=== PATIENT | female | born 1975 | race Caucasian/White ===

== ENCOUNTER 2016-06-29 15:20 | Emergency (ER) | payer OTHER ==
[~2016-06-29] VITALS: Ht 160 cm; Wt 59.1 kg
[2016-06-29 15:24] VITALS: BP 153/104
== END 2016-06-29 19:00 | disposition left against medical advice (07) ==
LOC: EMS 15:24
DX: R07.9 Chest pain, unspecified (principal); Z53.21 Procedure and treatment not carried out due to patient leaving prior to being seen by health care provider
CPT/HCPCS: 93005

== ENCOUNTER 2016-07-01 17:39 | Emergency (ER) | payer OTHER ==
[~2016-07-01] VITALS: Ht 160 cm; Wt 61.0 kg
[2016-07-01] MEDS ORDERED: LISI-622 PO (17:50)
[2016-07-01 19:20] LABS: BASOPHILS # (AUTO) 0.03 K/uL (0.00-0.20); BASOPHILS % (AUTO) 0.7 % (0.0-2.0); EOSINOPHILS # (AUTO) 0.07 K/uL (0.00-0.70); EOSINOPHILS % (AUTO) 1.57 % (1.0-6.0); HEMATOCRIT 37.8 % (36-46); HEMOGLOBIN 12.7 g/dL (12.0-16.0); LYMPHOCYTES # (AUTO) 2.2 K/uL (1.0-4.8); LYMPHOCYTES % (AUTO) 50.5 % (22.0-44.0); MEAN CORPUSCULAR HEMOGLOBIN 30.3 pg (26.0-34.0); MEAN CORPUSCULAR HGB CONC 33.7 G/dL (31.0-37.0); MEAN CORPUSCULAR VOLUME 90 fL (80-100); MONOCYTES # (AUTO) 0.4 K/uL (0.1-1.0); MONOCYTES % (AUTO) 8.6 % (2.0-9.0); NEUTROPHILS # (AUTO) 1.7 K/uL (1.8-7.7); NEUTROPHILS % (AUTO) 38.7 % (40.0-70.0); PLATELET COUNT (AUTO) 217 K/uL (150-450); RED BLOOD CELL COUNT(AUTO) 4.21 MIL/uL (4.00-5.20); RED CELL DISTRIBUTION WIDTH 12.6 % (11.5-14.5); WHITE BLOOD COUNT (AUTO) 4.3 K/uL (4.5-11.0)
[2016-07-01 19:29] LABS: CALCIUM, TOTAL 8.4 mg/dL (8.8-10.5); CREATININE 1.07 mg/dL (0.60-1.30)
[2016-07-01 19:30] LABS: INR 0.9 (0.9-1.1)
[2016-07-01 19:34] LABS: ALBUMIN 3.2 g/dL (3.4-5.0); BILIRUBIN,TOTAL 0.1 mg/dL (0.1-1.0); TOTAL PROTEIN, SERUM 7.1 g/dL (6.4-8.2)
[2016-07-01] MEDS ORDERED: IBUPROFEN 600 MG TABLET PO ONE (21:30)
[2016-07-01] MEDS ORDERED: LORazepam 1 MG TABLET PO ONE (21:30)
[2016-07-01 21:54] VITALS: BP 125/63
== END 2016-07-01 21:56 | disposition home or self-care (01) ==
LOC: EMS 17:40
DX: F41.9 Anxiety disorder, unspecified (principal); F17.210 Nicotine dependence, cigarettes, uncomplicated; R07.89 Other chest pain; I10 Essential (primary) hypertension; F11.90 Opioid use, unspecified, uncomplicated
CPT/HCPCS: 93005; 99285; 99406

== ENCOUNTER 2016-08-30 10:24 | Emergency (ER) | payer OTHER ==
[~2016-08-30] VITALS: Ht 160 cm; Wt 61.0 kg
[~2016-08-30 10:24] MED LIST: LISI-622 PO
[2016-08-30] MEDS ORDERED: KETOROLAC TROMETHAMINE 30 MG/ML VIAL IVP ONE (12:00)
[2016-08-30] MEDS ORDERED: ONDANSETRON HCL 4 MG/2 ML VIAL IVP ONE (12:00)
[2016-08-30] MEDS ORDERED: HYDROmorphone 2 MG/ML SYRINGE IVP ONE (12:00)
[2016-08-30 12:38] LABS: BASOPHILS % (AUTO) 0.6 % (0.0-2.0); EOSINOPHILS % (AUTO) 2.6 % (1.0-6.0); HEMATOCRIT 45.2 % (36-46); LYMPHOCYTES # (AUTO) 0.7 K/uL (1.0-4.8); LYMPHOCYTES % (AUTO) 16.9 % (22.0-44.0); MEAN CORPUSCULAR HEMOGLOBIN 29.3 pg (26.0-34.0); MEAN CORPUSCULAR HGB CONC 33.1 G/dL (31.0-37.0); MEAN CORPUSCULAR VOLUME 88 fL (80-100); MONOCYTES # (AUTO) 0.3 K/uL (0.1-1.0); MONOCYTES % (AUTO) 6.3 % (2.0-9.0); NEUTROPHILS # (AUTO) 3.1 K/uL (1.8-7.7); NEUTROPHILS % (AUTO) 73.6 % (40.0-70.0); PLATELET COUNT (AUTO) 218 K/uL (150-450); RED BLOOD CELL COUNT(AUTO) 5.11 MIL/uL (4.00-5.20); RED CELL DISTRIBUTION WIDTH 13.2 % (11.5-14.5); WHITE BLOOD COUNT (AUTO) 4.2 K/uL (4.5-11.0)
[2016-08-30 12:41] LABS: APPEARANCE,URINE CLOUDY (CLEAR); GLUCOSE, URINE (UA) NEGATIVE (NEGATIVE); KETONES,URINE TRACE mg/dL (NEGATIVE); LEUKOCYTE ESTERASE ,URINE MODERATE (NEGATIVE); OCCULT BLOOD,URINE LARGE (NEGATIVE); PROTEIN,URINE TRACE (NEGATIVE)
[2016-08-30 12:46] LABS: ADD UA MICROSCOPIC YES
[2016-08-30 12:48] LABS: ANION GAP 12 mmol/L (8-16); CALCIUM, TOTAL 7.9 mg/dL (8.8-10.5); CARBON DIOXIDE 22 mmol/L (22-29); CHLORIDE 102 mmol/L (98-107); CREATININE 0.69 mg/dL (0.60-1.30); GLOMERULAR FILTR. RATE CALC > 60 mL/min (>60); POTASSIUM 3.7 mmol/L (3.5-5.1); PROTHROMBIN TIME 10.5 SEC (9.4-11.6); SODIUM SERUM 136 mmol/L (136-145); UREA NITROGEN, BLOOD 15 mg/dL (7-18)
[2016-08-30 12:48] LABS: SQUAMOUS EPITHELIAL CELL,UR Few /LPF (None Seen)
[2016-08-30 12:55] LABS: ALANINE AMINOTRANSFERASE 396 U/L (12-78); ALBUMIN 3.1 g/dL (3.4-5.0); ASPARTATE AMINOTRANSFERASE 313 U/L (15-37); BILIRUBIN,TOTAL 0.7 mg/dL (0.1-1.0); TOTAL PROTEIN, SERUM 7.3 g/dL (6.4-8.2)
[2016-08-30] MEDS ORDERED: BARIUM SULFATE 0.1% SUSPENSION 450 ML BOTTLE PO ONE (13:30)
[2016-08-30 14:10] VITALS: BP 120/85
== END 2016-08-30 16:03 | disposition left against medical advice (07) ==
LOC: EMS 10:26
DX: R10.30 Lower abdominal pain, unspecified (principal); Z87.891 Personal history of nicotine dependence; I10 Essential (primary) hypertension; Z87.442 Personal history of urinary calculi
CPT/HCPCS: 36415; 80053; 81001; 83690; 84703; 85025; 85610; 85730; 87077; 87086; 87186; 96374; 96375; 99285; J1170; J1885; J2405; Z7610

== ENCOUNTER 2016-08-30 22:21 | Inpatient (IN) | payer OTHER ==
[~2016-08-30] VITALS: Ht 160 cm; Wt 63.0 kg
[2016-08-31] MEDS ORDERED: SODIUM CHLORIDE 0.9% 1,000 ML IV ONE ×2 (00:45→03:30)
[2016-08-31] MEDS ORDERED: HYDROmorphone 2 MG/ML SYRINGE IVP ONE ×3 (00:45→03:30)
[2016-08-31] MEDS ORDERED: ONDANSETRON HCL 4 MG/2 ML VIAL IVP ONE ×2 (00:45→03:30)
[2016-08-31 01:30] LABS: BASOPHILS % (AUTO) 0.2 % (0.0-2.0); EOSINOPHILS % (AUTO) 1.8 % (1.0-6.0); HEMATOCRIT 46.4 % (36-46); HEMOGLOBIN 15.1 g/dL (12.0-16.0); LYMPHOCYTES # (AUTO) 0.8 K/uL (1.0-4.8); LYMPHOCYTES % (AUTO) 12.7 % (22.0-44.0); MEAN CORPUSCULAR HGB CONC 32.6 G/dL (31.0-37.0); MEAN CORPUSCULAR VOLUME 89 fL (80-100); MONOCYTES # (AUTO) 0.3 K/uL (0.1-1.0); MONOCYTES % (AUTO) 5.2 % (2.0-9.0); NEUTROPHILS # (AUTO) 4.9 K/uL (1.8-7.7); NEUTROPHILS % (AUTO) 80.1 % (40.0-70.0); PLATELET COUNT (AUTO) 226 K/uL (150-450); RED BLOOD CELL COUNT(AUTO) 5.22 MIL/uL (4.00-5.20); RED CELL DISTRIBUTION WIDTH 13.8 % (11.5-14.5); WHITE BLOOD COUNT (AUTO) 6.1 K/uL (4.5-11.0)
[2016-08-31 01:35] LABS: ANION GAP 8 mmol/L (8-16); CARBON DIOXIDE 25 mmol/L (22-29); CHLORIDE 102 mmol/L (98-107); CREATININE 0.88 mg/dL (0.60-1.30); GLOMERULAR FILTR. RATE CALC > 60 mL/min (>60); POTASSIUM 3.5 mmol/L (3.5-5.1); SODIUM SERUM 135 mmol/L (136-145); UREA NITROGEN, BLOOD 16 mg/dL (7-18)
[2016-08-31 01:42] LABS: ALANINE AMINOTRANSFERASE 314 U/L (12-78); ALBUMIN 3.1 g/dL (3.4-5.0); ASPARTATE AMINOTRANSFERASE 174 U/L (15-37); BILIRUBIN,TOTAL 0.4 mg/dL (0.1-1.0); TOTAL PROTEIN, SERUM 7.3 g/dL (6.4-8.2)
[2016-08-31 01:44] LABS: LACTIC ACID 0.6 mmol/L (0.4-2.0)
[2016-08-31] MEDS ORDERED: KETOROLAC TROMETHAMINE 30 MG/ML VIAL IVP ONE (02:30)
[2016-08-31] MEDS ORDERED: ACETAMINOPHEN 325 MG TABLET PO PRN ×2 (03:30→07:45)
[2016-08-31] MEDS ORDERED: CefTRIAXone 1 GM/DEXTROSE 50 ML IV ONE (03:30)
[2016-08-31] MEDS ORDERED: ONDANSETRON HCL 4 MG/2 ML VIAL IVP PRN ×2 (03:30→07:45)
[2016-08-31] MEDS ORDERED: POTASSIUM CHL 20 MEQ/D5-0.45NS 1,000 ML IV ONE (03:30)
[2016-08-31] MEDS ORDERED: 0.9% SODIUM CHLORIDE 10 ML SYRINGE IVP PRN (03:30)
[2016-08-31 04:45] VITALS: BP 106/74
[2016-08-31] MEDS ORDERED: SODIUM CHLORIDE 0.9% 1,000 ML IV SCH (07:45)
[2016-08-31] MEDS ORDERED: POTASSIUM CHL 10 MEQ/WATER 50 ML IV PRN (07:45)
[2016-08-31] MEDS ORDERED: POTASSIUM CHLORIDE 20 MEQ ER TABLET PO PRN (07:45)
[2016-08-31 08:38] VITALS: BP 101/72
[2016-08-31] MEDS: PANTOPRAZOLE SODIUM 40 MG/VIAL IVP SCH (09:15)
[2016-08-31 11:58] VITALS: BP 110/77
[2016-08-31] MEDS: METHADONE HCL 10 MG/5 ML SOLUTION ORAL.SYG PO SCH (13:35)
[2016-08-31 15:54] VITALS: BP 117/81
[2016-08-31] MEDS: LOPERAMIDE HCL 2 MG CAPSULE PO PRN ×2 (18:49→18:53)
[2016-08-31 20:02] VITALS: BP 106/71
[2016-08-31 23:43] VITALS: BP 138/90
[2016-09-01 04:00] VITALS: BP 106/75
[2016-09-01 07:05] VITALS: BP 101/50
[2016-09-01 07:38] VITALS: BP 126/91
[2016-09-01] MEDS: LOPERAMIDE HCL 2 MG CAPSULE PO PRN (08:26)
[2016-09-01] MEDS: PANTOPRAZOLE SODIUM 40 MG/VIAL IVP SCH (08:56)
[2016-09-01] MEDS: METHADONE HCL 10 MG/5 ML SOLUTION ORAL.SYG PO SCH (08:57)
[2016-09-02 04:14] LABS: HEPATITIS Bs ANTIGEN SCREEN P Negative (Negative)
[2016-09-04 12:10] LABS: HEPATITIS C AB CONFIRM REFLEX? YES; HEPATITIS C AB CONFIRMATION Reactive (Non Reactive); HEPATITIS C AB SCREEN 4.7 s/co ratio (0.0-0.9)
== END 2016-09-01 12:00 | disposition left against medical advice (07) | DRG 249 ==
LOC: EMS 22:24 → 6N 08-31 03:28
PROVIDERS: ADMIT Internal Medicine; ATTEND Internal Medicine
DX: A08.4 Viral intestinal infection, unspecified (principal); E44.0 Moderate protein-calorie malnutrition; I10 Essential (primary) hypertension; B18.2 Chronic viral hepatitis C; F17.210 Nicotine dependence, cigarettes, uncomplicated; R11.2 Nausea with vomiting, unspecified; R74.0 Nonspecific elevation of levels of transaminase and lactic acid dehydrogenase [LDH]; K56.7 Ileus, unspecified; F19.10 Other psychoactive substance abuse, uncomplicated; F10.10 Alcohol abuse, uncomplicated; F15.10 Other stimulant abuse, uncomplicated; Y90.9 Presence of alcohol in blood, level not specified; Z90.49 Acquired absence of other specified parts of digestive tract; Z91.19 Patient's noncompliance with other medical treatment and regimen; Z87.442 Personal history of urinary calculi
CPT/HCPCS: 74176; 76700; 80074; 82105; 83605; 86804; 87045; 87324; 87449; 89055; 96361; 96374; 96375; 96376; 99285; C9113; G0480; J0696; J1170; J1885; J2405; J3480; J7030

== ENCOUNTER 2025-03-16 09:48 | Emergency (ER) | payer OTHER ==
[~2025-03-16] VITALS: Ht 160 cm; Wt 63.6 kg
[~2025-03-16 09:48] MED LIST changes: -LISI-622 PO; +LISI5TAB21 PO
[2025-03-16 10:15] VITALS: TEMP 98.4
[2025-03-16] MEDS ORDERED: RIVA20TA PO (10:25)
[2025-03-16] MEDS ORDERED: LISI-892 PO (10:25)
[2025-03-16] MEDS ORDERED: OLAN5TAB52 PO (10:25)
[2025-03-16] MEDS ORDERED: OMEP-148 PO (10:25)
[2025-03-16] MEDS ORDERED: BUPR1TAB46 SL (10:25)
[2025-03-16] MEDS ORDERED: GABA-1181 PO (10:25)
[2025-03-16] MEDS ORDERED: HYDR-5256 PO (10:25)
[2025-03-16] MEDS ORDERED: BUSP15 PO (10:25)
[2025-03-16 10:29] LABS: PLATELET COUNT (AUTO) 253 K/uL (150-450); RED BLOOD CELL COUNT(AUTO) 4.24 MIL/uL (4.00-5.20); RED CELL DISTRIBUTION WIDTH 13.7 % (11.5-14.5); WHITE BLOOD COUNT (AUTO) 4.6 K/uL (4.5-11.0)
[2025-03-16 10:37] LABS: CALCIUM, TOTAL 8.5 mg/dL (8.8-10.5); CREATININE 1.09 mg/dL (0.60-1.30); GLOMERULAR FILTR. RATE CALC 53 mL/min (>60); GLUCOSE,RANDOM 110 mg/dL (70-110); SODIUM SERUM 140 mmol/L (136-145); UREA NITROGEN, BLOOD 18 mg/dL (7-18)
[2025-03-16 10:46] LABS: LACTIC ACID 0.9 mmol/L (0.4-2.0); TROPONIN I-HIGH SENSITIVITY 11 ng/L (<51)
[2025-03-16] MEDS: SODIUM CHLORIDE 0.9% 1,000 ML IV ONE (10:49)
[2025-03-16] MEDS: ONDANSETRON HCL 4 MG/2 ML VIAL IVP ONE (10:49)
[2025-03-16] MEDS: IOHEXOL 9 MG/ML 500 ML BOTTLE PO ONE (10:50)
[2025-03-16] MEDS ORDERED: IOHEXOL 350 MG/ML 100 ML VIAL ONE (11:49)
[2025-03-16] MEDS ORDERED: SODIUM CHLORIDE 0.9% 100 ML ONE (11:50)
[2025-03-16 13:30] VITALS: BP 125/74; PULSE 71; RESP 17; O2SAT 99
== END 2025-03-16 14:21 ==
LOC: EMS 09:49
DX: K44.9 Diaphragmatic hernia without obstruction or gangrene (principal); R10.30 Lower abdominal pain, unspecified; R11.10 Vomiting, unspecified; F41.9 Anxiety disorder, unspecified; I10 Essential (primary) hypertension; Z87.442 Personal history of urinary calculi; Z79.899 Other long term (current) drug therapy; Z86.19 Personal history of other infectious and parasitic diseases
CPT/HCPCS: 99285; 74177; 96374; 71045; 96361; 96375; 80048; 83605; 83690; 84484; 85025; 36415; 93005; Q9967 ×2; J1171; J2405; J7030; J7050